=== PATIENT | male | born 1945 | race Caucasian/White ===

== ENCOUNTER 2023-02-22 22:31 | Outpatient (CLI) | payer MEDICARE, OTHER | END 2023-02-22 22:32 | disposition critical access hospital (66) | LOC: EMS 22:31 | DX: U07.1 COVID-19 (principal); R55 Syncope and collapse | CPT/HCPCS: A0425; A0429 ==

== ENCOUNTER 2023-02-22 23:09 | Emergency (ER) | payer MEDICARE, OTHER ==
[2023-02-22] MEDS ORDERED: SODIUM CHLORIDE 0.9% 1,000 ML IV STA (23:18)
--- NOTE | 2023-02-22 23:23 | ED Physician Documentation ---
History of Present Illness - Stated complaint Stated Complaint: SYNCOPE/C+ - Chief complaint Chief Complaint: Cardiac - History obtained from History obtained from: Patient, EMS - Additonal information Additional information: The patient comes to the emergency department chief complaint of syncopal episode after standing up from a laying position this evening. Patient tested positive for COVID yesterday after developing upper respiratory symptoms and states that he has had a mild cough and some chills. He states he does not think he has had enough to drink as far as water today but did take his blood pressure medications. He states that his was sick a couple days before him and had very similar symptoms. The patient states he does not have chest pain andDenies shortness of breath. No palpitations. He had coronary artery stenting 3 years ago and again approximately 10 months ago and states he has had no issues since the most recent stenting. He sees a Dr. Abraham of cardiology up in [place]. The patient states he actually feels fairly good right now. Medics state that the patient's initial blood pressure systolic was 88 and has gradually crept up over the course of transport but still has not quite yet reached 100. Patient denies any nausea or vomiting. He has had a little bit of "loose stools". No other complaints at this time. PD PAST MEDICAL HISTORY - Allergies Allergies/Adverse Reactions: Allergies Allergy/AdvReac Type Severity Reaction Status Date / Time No Known Drug Allergies Allergy Verified 02/22/23 23:19 PD ED PE NORMAL - Vitals Vital signs reviewed: Yes - General General: Alert and oriented X 3, No acute distress, Well developed/nourished - HEENT HEENT: Atraumatic, PERRL, EOMI, Moist mucous membranes - Neck Neck: Supple, no meningeal sign - Cardiac Cardiac: RRR, No murmur, Strong equal pulses - Respiratory Respiratory: No respiratory distress, Clear bilaterally - Abdomen Abdomen: Soft, Non tender, Non distended - Derm Derm: Normal color, Warm and dry, No rash - Extremities Extremities: No deformity, No edema - Neuro Neuro: Alert and oriented X 3, No motor deficit, No sensory deficit - Psych Psych: Normal mood, Normal affect Results - Vitals Vitals: Vital Signs - 24 hr 02/22/23 02/22/23 02/23/23 23:16 23:19 00:05 Temperature 36.5 C Heart Rate 78 67 79 Respiratory 12 14 18 Rate Blood Pressure 97/73 94/56 L 110/63 O2 Saturation 98 98 97 Oxygen O2 Source Room air - Labs Labs: Laboratory Tests 02/22/23 02/22/23 02/22/23 23:28 23:28 23:28 WBC 6.3 RBC 3.87 L Hgb 12.6 L Hct 38.2 L MCV 98.7 H MCH 32.6 H MCHC 33.0 RDW 14.3 Plt Count 179 MPV 9.6 Neut # (Auto) 5.1 Lymph # (Auto) 0.2 L [place] # (Auto) 1.0 Eos # (Auto) 0.0 Baso # (Auto) 0.0 Absolute Nucleated RBC 0.00 Nucleated RBC % 0.0 Sodium 140 Potassium 3.7 Chloride 110 Carbon Dioxide 23 Anion Gap 7.0 BUN 14 Creatinine 1.2 Estimated GFR (MDRD) 58 L Glucose 116 H Lactic Acid 1.0 Calcium 8.3 L Total Bilirubin 0.5 AST 15 ALT 12 Alkaline Phosphatase 57 Total Protein 5.9 L Albumin 3.5 Globulin 2.4 Albumin/Globulin Ratio 1.5 Lipase 24 PD Medical Decision Making - ED course Complexity details: reviewed results, re-evaluated patient, considered different ial, d/w patient ED course: The patient is very well-appearing in the emergency department and I suspected some dehydration in the setting of illness, compounded by the patient taking his blood pressure medicines. The patient was given a liter of normal saline in the emergency department and worked up with EKG, CBC, ER abdominal panel, and lactic acid level. Patient's laboratory studies were normal including white blood cell count and lactic acid. He was able to ambulate to the bathroom without difficulty and without any complaints of lightheadedness. His systolic blood pressures were stable in the upper 90s and heart rate was stable in the 60s, and I felt he was stable for discharge home. We have discussed symptomatic management at home as well as the usual indications for return. Departure - Departure Disposition: 01 Home, Self Care Clinical Impression: COVID-19, Dehydration Condition: Stable Instructions: ED Dehydration, ED Viral Syndrome Comments: Your labs look fantastic. There is no evidence of sepsis or any other serious condition at this time. You should get rest at home until you are feeling better. Please be sure you are drinking plenty of fluids every day To stay h ydrated and prevent the risk of fainting or near fainting again. For now, when you go from a laying to standing position, and consider sitting for a minute before attempting to stand up to help give your body some time to adjust to the positional change. This will help prevent you from getting lightheaded. Forms: PCP List
[2023-02-22 23:34] LABS: HCT - HEMATOCRIT 38.2 % (42.0-52.0); HGB - HEMOGLOBIN 12.6 g/dL (14.0-18.0); LYMPHOCYTES # (AUTO) 0.2 10^3/uL (1.5-3.5); LYMPHOCYTES % (AUTO) 3.6 %; MEAN CORPUSCULAR HEMOGLOBIN 32.6 pg (27.0-31.0); MEAN CORPUSCULAR VOLUME 98.7 fL (80.0-94.0); MEAN PLATELET VOLUME 9.6 fL (7.4-11.4); MONOCYTES % (AUTO) 15.2 %; NEUTROPHILS # (AUTO) 5.1 10^3/uL (1.5-6.6); NEUTROPHILS % (AUTO) 80.9 %; PLT - PLATELET COUNT 179 10^3/uL (130-450); RED BLOOD COUNT 3.87 10^6/uL (4.70-6.10); RED CELL DISTRIBUTION WIDTH 14.3 % (12.0-15.0); WHITE BLOOD COUNT 6.3 x10^3/uL (4.8-10.8)
[2023-02-22 23:52] LABS: ALBUMIN 3.5 g/dL (3.2-5.5); ALBUMIN/GLOBULIN RATIO 1.5 (1.0-2.2); BILIRUBIN,TOTAL 0.5 mg/dL (0.2-1.0); CALCIUM 8.3 mg/dL (8.5-10.3); CREATININE 1.2 mg/dL (0.6-1.3); POTASSIUM 3.7 mmol/L (3.5-4.5); TOTAL PROTEIN 5.9 g/dL (6.4-8.9)
[2023-02-23 02:00] VITALS: BP 100/62; O2SAT 98
== END 2023-02-23 01:55 | disposition home or self-care (01) ==
LOC: ED 23:09
DX: U07.1 COVID-19 (principal); E86.0 Dehydration
CPT/HCPCS: 36415; 80053; 83605; 83690; 85025; 93005; 96360; 99283